=== PATIENT | male | born 1960 | race Two or more races ===

== ENCOUNTER 2019-07-27 18:32 | Emergency (ER) | payer OTHER ==
[~2019-07-27] VITALS: Ht 170.2 cm; Wt 65.3 kg
[2019-07-27 18:41] VITALS: BP 142/108
--- NOTE | 2019-07-27 19:25 | NUR ---
Patient discharged to home in stable condition. Written and verbal after care instructions given. Patient verbalizes understanding of instruction.
== END 2019-07-27 19:26 | disposition home or self-care (01) ==
LOC: ER 18:41
DX: B35.3 Tinea pedis (principal); R56.9 Unspecified convulsions; Z59.0 Homelessness